=== PATIENT | female | born 1995 | race Caucasian/White ===

== ENCOUNTER 2019-05-24 10:00 | Outpatient (RCR) | payer OTHER, SELFPAY ==
--- NOTE | 2019-04-26 12:20 | HP.PTEVAL ---
Patient's Visit Information NICHOL PAULSON is a 23 year old F referred to Physical Therapy by Colby Mariee with a diagnosis of R ANKLE JUNIE COLLATERAL AND DELTOID LIGAMENT REPAIRS 03/06/19. Date of Evaluation: 04/25/19 Physical Therapist: Yoon Fabian PT, Cert MDT - Visit Plan Frequency: 2x /Week Duration: 6 Weeks - Subjective Findings: Work/Leisure: [employer] STARTING [employer] IN [place]. 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 SURGERY: RIGHT ANKLE RECONSTRUCTION 03/06/19. Present symptoms: HEEL PAIN AND SWELLING. Present since: ROLLED IT MULTIPLE TIMES BUT LAST FALL IN [place] REALLY HURT IT PLAYING BASKETBALL. FX'D PART OF TIBIA AND TORE LIGAMENTS. Pain Scale: WORST 5/10, LEAST 0/10. Currently: 0/10. Commenced as a result of: BASKETBALL. Symptoms at onset: ANKLE. Worse: WALKING IN THE BOOT. Better: BEING OFF OF IT. ICE. IBUPROFEN NEEDED. Disturbed sleep: YES. Previous history/Previous treatment: LONG HISTORY OF ROLLING RIGHT ANKLE IN BASKETBALL. LAST FALL AT [employer] IN [place] WAS PLAYING IN AN OPEN GYM AND REALLY HURT IT. DX'D WITH FX'D TIBIA RIGHT AWAY. STATES IT WAS A SMALL FX OFF THE END. SHE WENT INTO A CAST AT SCHOOL BUT CAME HOME AND WENT INTO A BOOT WITHIN A FEW DAYS. SHE WAS NON WEIGHT BEARING FOR ABOUT 4 WEEKS THEN STAYED IN BOOT ANOTHER 2 WEEKS OR SO. GOT BACK TO PLAYING BUT DUE TO CONTINUED PAIN HAD AN MRI. TRIED REHAB THE WHOLE TIME AND COULDN'T GET BACK TO PLAYING. EVENTUALLY DECIDED TO HAVE THE SURGERY. WAS IN BOOT OFF AND ON BEFORE SURGERY. BY END OF SEPTEMBER QUIT TRYING TO PLAY BASKETBALL. Gait: SEE BELOW. HASN'T BEEN HURTING WITH A FEW STEPS WITHOUT THE BOOT. Accidents: NO. Unexplained weight loss: NO. Imaging: NO POST SURGERY X-RAYS YET. PMH: CELIAC DZ - GLUTEN FREE DIET. Recent major surgery: NO OTHERS. PLOF (Prior Level of Function): UNLIMITED. OTHER: STARTED WBAT IN BOOT LAST WEEK. ONCE PAINFREE WITHOUT THE BOOT SHE IS ALLOWED TO DRIVE. STARTED ANKLE PUMPS. NO LIMITATIONS. ALLOWED TO WALK MUCH SHE WANTS BUT HASN'T WALKED MORE THAN A FEW STEPS WITHOUT THE BOOT. FOLLOW UP IS PENDING WITH DR. MARIEE 05/23/19. - Objective THIS PATIENT AMBULATES INDEP'LY INTO PT WEARING BOOT ON RIGHT FOOT. OUT OF THE BOAT SHE BEARS WEIGHT ON HER HEEL ONLY WITH A LIMP. SHE HAS VERY MILD ECCYMOSIS POSTERIOR TO THE LATERAL MALLEOLUS. LE LIGHT TOUCH SENSATION IS INTACT AND SYMMETRICAL BUT HER INCISIONS ARE STILL A LITTLE HYPERSENSATIVE. JUNIE LE STRENGTH IS 5/5 WITH MMT'ING EXCEPT RIGHT FOOT AND ANKLE. AROM RIGHT ANKLE: DORSIFLEX TO NEURTRAL, PLANTAR FLEX 55 DEG, IVERSION 30 DEG, EVERSION 10 DEG. (LEFT ANKLE - UNINVOLVED - PLANTAR FLEX IS 80 DEG). GIRTH MEASUREMENTS: RIGHT MALLEOLI 26 CM, MT HEADS 22 CM, 6PROX TO MALLEOLI 30 CM AND 10 PROX TO MALLEOLI 37 CM. FOR COMPARISON, LEFT CALF IS 39 CM AT 10 PROX TO MALLEOLI AND 29 CM 6 PROX. TREATMENT: INSTRUCTED PATIENT IN ANKLE ALPHABET AND 4 WAY SLR'S FOR HEP. ALSO DID GAIT TRAINING UTILIZING CRUTCHES FOR HEEL STRIKE, FOOT FLAT AND TOE OFF PHASES OF GAIT ENCOURAGEMENT. APPREHENSIVE TO DO THIS WITHOUT CRUTCHES BUT LEARNED AND BECAME CONFIDENT IN PROPER SEQUENCING QUICKLY. PATIENT PUT REGULAR TENNIS SHOE ON FOR THE FIRST TIME DURING THIS SESSION TOO. - Goals Goal 1:: NORMALIZED GAIT PATTERN WITHOUT ASSISTIVE DEVICE Goal Time Frame: 4-6 Weeks Goal 2:: DECREASE RIGHT ANKLE PAIN AND EDEMA Goal Time Frame: 4-6 Weeks Goal 3:: IMPROVE RIGHT LE FUNCTIONAL ROM Goal Time Frame: 4-6 Weeks Goal 4:: IMRPOVE RIGHT LE FUNCTIONAL STRENGTH Goal Time Frame: 4-6 Weeks Goal 5:: INDEP HEP FOR CONTINUED IMPROVEMENT ONCE FORMAL PHYSICAL THERAPY CONCLUDES. Goal Time Frame: 4-6 Weeks - Rehabilitation Potential Rehabilitation Potential: Good - Anticipated Interventions Patient/Client Instruction: Educate patient on: Condition, Plan of Care, Risk Factors, Benefits of Fitness Program For the Purpose of:: To improve self management Therapeutic Exercise to Include: Strength training, Endurance training, Balance training, Coordination, Agility training, Flexibilty training, Gait and locomotor training, Passive ROM, Active ROM For the Purpose of:: To decrease pain, To increase ROM, To improve muscle performance and motor function, To increase tolerance to activity/condition/position, To improve ability of physical actions for home/community/work/leisure, To improve gait and locomotor functions Cryotherapy (ice pack, ice massage): Yes Thermo therapy (hot pack): Yes For the Purpose of:: To decrease pain, To decrease swelling/inflammation Thank you for the opportunity to evaluate your patient. For Medicare and Medicare HMO plans, please review the plan of care and approve it. It will need to be FAXED BACK to us at [phone] for Medicare purposes. For Medicare only, by signing this I certify the plan of care. Please let me know if there are questions or concerns regarding this plan of care. Physician Signature: Date:
--- NOTE | 2019-07-04 17:35 | HP.PTDCNRP_ITS ---
HP - Discharge Summary (1) - Patient Information NICHOL PAULSON was seen in my office for initial evaluation on 04/25/19. The following Plan of Care was established for this patient: Initial Frequency: 2x /Week Initial Duration: 6 Weeks - Anticipated Interventions Patient/Client Instruction: Educate patient on: Condition, Plan of Care, Risk Factors, Benefits of Fitness Program For the Purpose of:: To improve self management Therapeutic Exercise to Include: Strength training, Endurance training, Balance training, Coordination, Agility training, Flexibilty training, Gait and locomotor training, Passive ROM, Active ROM For the Purpose of:: To decrease pain, To increase ROM, To improve muscle performance and motor function, To increase tolerance to activity/ condition/position, To improve ability of physical actions for home/community/work/leisure, To improve gait and locomotor functions Cryotherapy (ice pack, ice massage): Yes Thermo therapy (hot pack): Yes For the Purpose of:: To decrease pain, To decrease swelling/inflammation This patient was last seen in our office 05/24/19. Pertinent comments regarding their Physical therapy will appear below: PATIENT HAD TO STOP PT EARLY DUE TO RETURNING TO SCHOOL SOONER THAN EXPECTED. At this point I will be discontinuing this patient from physical therapy. I would be happy to see this patient again in the future if found appropriate by the physician. Thank you! Yoon Fabian, PT, Cert MDT
== END 2019-05-24 19:00 | disposition home or self-care (01) ==
LOC: PT 10:00
PROVIDERS: Family Provider Pediatrics; PCP Pediatrics
DX: S93.421D Sprain of deltoid ligament of right ankle, subsequent encounter (principal)
CPT/HCPCS: 97110; 97116; 97161